=== PATIENT | female | born 1975 | race American Indian/Alaskan Native ===

== ENCOUNTER 2017-03-28 14:08 | Outpatient (CLI) | payer OTHER ==
--- NOTE | 2017-03-28 15:32 | Mammography Report ---
BILATERAL MAMMOGRAM: FINDINGS: The breast tissue is heterogeneously dense, which could obscure detection of small masses (approximately 50%-75% glandular). No mass, distortion, suspicious calcification, or skin change is seen. CAD was utilized. IMPRESSION: Negative mammogram. There is no mammographic evidence of malignancy. RECOMMENDATION: Follow-up per ACS guidelines. BI-RADS CATEGORY: 1 = Negative ACR BI-RADS MAMMOGRAPHIC CODES: 0 = Needs additional imaging evaluation; 1 = Negative; 2 = Benign; 3 = Probably benign; 4 = Suspicious; 5 = Malignant; 6 = Known biopsy-proven malignancy COMMENT: 1. Dense breast tissue, i.e., adenosis, fibrocystic changes, etc., may obscure an underlying neoplasm. 2. Approximately 10% of cancers are not detected with mammography. 3. A negative mammography report should not delay biopsy if a clinically suspicious mass is present. COMMENT: Patient follow-up letters are generated in [id number].
--- NOTE | 2017-03-28 15:59 | Fluoroscopy Report ---
FLUORO GUIDED HSG INDICATION: Primary infertility. History of right ectopic in the past. Recent extensive myomectomies. COMPARISON: None similar. FINDINGS: Hysterosalpingogram performed with cervix cannulated using standard sterile precautions. Preliminary radiograph demonstrates no significant abnormality. Injection of 11 cc of Omnipaque-300 under fluoroscopy demonstrates normal uterine cavity/contour. Venous intravasation noted. No opacification of the fallopian tubes or free intraperitoneal spill on either side. CONCLUSION: Occluded bilateral fallopian tubes, as described. Thank you for the opportunity to participate in this patient's care.
== END 2017-03-28 14:09 | disposition home or self-care (01) ==
LOC: MAMMO 14:08
PROVIDERS: ATTEND Obstetrics & Gynecology
DX: Z12.31 Encounter for screening mammogram for malignant neoplasm of breast (principal); N97.1 Female infertility of tubal origin
CPT/HCPCS: 58340; 74740; G0202; Q9967; 77067